=== PATIENT | male | born 1985 | race Caucasian/White ===

== ENCOUNTER 2017-10-28 12:42 | Emergency (ER) | payer SELFPAY ==
[~2017-10-28] VITALS: Ht 373.3 cm; Wt 83.9 kg
== END 2017-10-28 14:24 | disposition home or self-care (01) ==
LOC: ED 12:42
DX: T63.441A Toxic effect of venom of bees, accidental (unintentional), initial encounter (principal); F17.200 Nicotine dependence, unspecified, uncomplicated; Y92.89 Other specified places as the place of occurrence of the external cause